=== PATIENT | female | born 1990 | race Caucasian/White ===

== ENCOUNTER 2016-10-27 17:41 | Emergency (ER) | payer MEDICAID ==
[~2016-10-27] VITALS: Ht 157.5 cm; Wt 52.3 kg
[~2016-10-27 17:41] MED LIST: IBU800 M1 PO; LEXAPRO 10MG10 MG PO; ULTRAM 50MG TAB50 MG PO
[2016-10-27 17:46] VITALS: TEMP 98
[2016-10-27 18:27] LABS: BASO # 0.1 (0.0-0.2); BASO % 1.2 % (0.0-2.0); EOS # 0.1 (0.0-0.7); EOS % 1.4 % (0-4.0); GRAN # 1.8 (1.4-6.5); GRAN % 37.8 % (42.2-75.2); HEMATOCRIT 44.7 % (37.0-47.0); HEMOGLOBIN 15.2 g/dl (12.5-16.0); LYMPH # 2.6 (1.2-3.4); MEAN CELL VOLUME 84 fl (80.0-100.0); MEAN CORPUSCULAR HEMOGLOBIN 29 pg (27.0-31.0); MEAN CORPUSCULAR HGB CONC 34 g/dl (33.0-37.0); MONO # 0.3 (0.1-0.6); MONO % 6.4 % (1.7-9.3); PLATELET COUNT 234 K/mm3 (130-400); RED BLOOD COUNT 5.32 M/mm3 (4.10-5.30); REDCELL DISTRIBUTION WIDTH-CV 14.9 % (11.5-14.5); WHITE BLOOD COUNT 4.8 K/mm3 (4.8-10.8)
[2016-10-27 18:41] LABS: ADJUSTED CALCIUM 8.2 mg/dL (8.4-10.2); ALANINE AMINOTRANSFERASE 170 U/L (9-52); ALBUMIN 4.6 gm/dL (3.5-5.0); ALKALINE PHOSPHATASE 88 U/L (50-136); ANION GAP 20 mmol/L (7-16); BILIRUBIN,TOTAL 0.7 mg/dL (0.0-1.0); BLOOD UREA NITROGEN 2 mg/dL (7-17); CALCIUM 8.7 mg/dL (8.4-10.2); CARBON DIOXIDE 21 mmol/L (22-30); CHLORIDE 103 mmol/L (98-107); CREATININE, serum 0.74 mg/dL (0.52-1.25); GLUCOSE 114 mg/dL (74-106); POTASSIUM 3.6 mmol/L (3.4-5.0); SODIUM 143 mmol/L (137-145); TOTAL PROTEIN 7.7 gm/dL (6.4-8.2)
[2016-10-27 18:42] LABS: ACETAMINOPHEN < 10 ug/mL (10-30); SALICYLATE < 1.0 mg/dL
[2016-10-27 19:29] LABS: AMPHETAMINE URINE NEGATIVE; BARBITURATES URINE NEGATIVE; BENZODIAZEPINES URINE NEGATIVE; BUPRENORPHINE URINE NEGATIVE; METHADONE URINE NEGATIVE; OPIATES URINE NEGATIVE; OXYCODONE URINE NEGATIVE; PHENCYCLIDINE URINE NEGATIVE; PROPOXYPHENE URINE NEGATIVE; THC CANNABINOIDS URINE NEGATIVE
[2016-10-27 20:41] LABS: PH 7 (5-8); SQUAMOUS EPITHELIAL None Seen /hpf; URINE APPEARANCE Clear; URINE BACTERIA None Seen /hpf; URINE BILIRUBIN Negative (NEGATIVE); URINE BLOOD Negative (NEGATIVE); URINE COLOR Yellow; URINE GLUCOSE Negative (NEGATIVE); URINE KETONE Negative (NEGATIVE); URINE RBC 0-2 /hpf; URINE UROBILINOGEN Negative (NEGATIVE)
[2016-10-28 03:56] VITALS: BP 115/78; PULSE 120
== END 2016-10-28 03:58 | disposition home or self-care (01) ==
LOC: COL.ER 17:41
PROVIDERS: Emergency Medicine
DX: F10.120 Alcohol abuse with intoxication, uncomplicated (principal); Y90.8 Blood alcohol level of 240 mg/100 ml or more; F32.3 Major depressive disorder, single episode, severe with psychotic features

== ENCOUNTER 2016-12-27 19:49 | Emergency (ER) | payer MEDICAID ==
[~2016-12-27] VITALS: Ht 157.5 cm; Wt 50.0 kg
[2016-12-27 19:51] VITALS: BP 137/98; TEMP 99
[2016-12-27] MEDS ORDERED: ZOLOFT 50MG50 MG PO (19:55)
[2016-12-27] MEDS ORDERED: MOTRIN 800800 MG/TAB PO (20:41)
[2016-12-27 20:50] VITALS: PULSE 110
== END 2016-12-27 20:51 | disposition home or self-care (01) ==
LOC: COL.ER 19:49
DX: S60.221A Contusion of right hand, initial encounter (principal); W22.03XA Walked into furniture, initial encounter; Y92.003 Bedroom of unspecified non-institutional (private) residence as the place of occurrence of the external cause; F32.9 Major depressive disorder, single episode, unspecified

== ENCOUNTER 2017-01-21 17:55 | Observation (INO) | payer MEDICAID ==
[~2017-01-21] VITALS: Ht 157.5 cm; Wt 50.2 kg
[2017-01-21] VITALS (57 sets, daily range): BP systolic 112; BP diastolic 89; PULSE 100; TEMP 97.9; O2SAT 99–100
[~2017-01-21 17:55] MED LIST changes: +MOTRIN 800800 MG/TAB PO; +ZOLOFT 50MG50 MG PO
[2017-01-21 18:38] LABS: BASO % 0.3 % (0.0-2.0); GRAN # 8.9 (1.4-6.5); GRAN % 87.1 % (42.2-75.2); HEMATOCRIT 50.4 % (37.0-47.0); HEMOGLOBIN 15.5 g/dl (12.5-16.0); LYMPH # 0.7 (1.2-3.4); LYMPH % 6.6 % (20.0-51.0); MEAN CELL VOLUME 95 fl (80.0-100.0); MEAN CORPUSCULAR HEMOGLOBIN 29 pg (27.0-31.0); MEAN CORPUSCULAR HGB CONC 31 g/dl (33.0-37.0); MEAN PLATELET VOLUME 11.3 fl (7.4-10.4); MONO # 0.6 (0.1-0.6); MONO % 5.8 % (1.7-9.3); PLATELET COUNT 179 K/mm3 (130-400); RED BLOOD COUNT 5.29 M/mm3 (4.10-5.30); REDCELL DISTRIBUTION WIDTH-CV 16.7 % (11.5-14.5); WHITE BLOOD COUNT 10.3 K/mm3 (4.8-10.8)
[2017-01-21 18:50] LABS: ADJUSTED CALCIUM 8.2 mg/dL (8.4-10.2); ALANINE AMINOTRANSFERASE 187 U/L (9-52); ALBUMIN 5.5 gm/dL (3.5-5.0); ALKALINE PHOSPHATASE 68 U/L (50-136); AMYLASE 70 U/L (30-110); ANION GAP 35 mmol/L (7-16); BILIRUBIN,TOTAL 1.2 mg/dL (0.0-1.0); BLOOD UREA NITROGEN 7 mg/dL (7-17); CALCIUM 9.4 mg/dL (8.4-10.2); CHLORIDE 100 mmol/L (98-107); CREATININE, serum 0.75 mg/dL (0.52-1.25); GLUCOSE 45 mg/dL (74-106); LIPASE 82 U/L (23-300); POTASSIUM 5.4 mmol/L (3.4-5.0); SODIUM 141 mmol/L (137-145); TOTAL PROTEIN 8.3 gm/dL (6.4-8.2)
[2017-01-21 18:51] LABS: CARBON DIOXIDE 6 mmol/L (22-30)
[2017-01-21 18:51] LABS: PH 5 (5-8); SQUAMOUS EPITHELIAL 0-2 /hpf; URINE APPEARANCE Clear; URINE BACTERIA Rare /hpf; URINE BILIRUBIN Negative (NEGATIVE); URINE BLOOD 2+ (NEGATIVE); URINE COLOR Yellow; URINE GLUCOSE Negative (NEGATIVE); URINE KETONE 2+ (NEGATIVE); URINE RBC 0-2 /hpf; URINE UROBILINOGEN Negative (NEGATIVE); URINE WBC 0-2 /hpf
[2017-01-21 19:34] LABS: ACETAMINOPHEN < 10 ug/mL (10-30); SALICYLATE < 1.0 mg/dL
[2017-01-21 21:46] LABS: CALCIUM 7.6 mg/dL (8.4-10.2); CREATININE, serum 0.65 mg/dL (0.52-1.25); POTASSIUM 4.8 mmol/L (3.4-5.0)
[2017-01-21 22:12] LABS: AMPHETAMINE URINE NEGATIVE; BARBITURATES URINE NEGATIVE; BENZODIAZEPINES URINE NEGATIVE; BUPRENORPHINE URINE NEGATIVE; METHADONE URINE NEGATIVE; OPIATES URINE NEGATIVE; OXYCODONE URINE NEGATIVE; PHENCYCLIDINE URINE NEGATIVE; PROPOXYPHENE URINE NEGATIVE; THC CANNABINOIDS URINE NEGATIVE
[2017-01-22] VITALS (901 sets, daily range): BP systolic 107–132; BP diastolic 74–98; PULSE 80–93; TEMP 97.4–98.6; O2SAT 42–100
[2017-01-22 00:01] LABS: PROTHROMBIN TIME 11.3 SECONDS (9.7-12.8)
[2017-01-22 02:45] LABS: CREATININE, serum 0.59 mg/dL (0.52-1.25); MAGNESIUM 2.6 mg/dL (1.6-2.3); PHOSPHOROUS 1.8 mg/dL (2.5-4.5); POTASSIUM 4.3 mmol/L (3.4-5.0)
[2017-01-22 06:05] LABS: MEAN CORPUSCULAR HGB CONC 34 g/dl (33.0-37.0); MEAN PLATELET VOLUME 10.5 fl (7.4-10.4); PLATELET COUNT 113 K/mm3 (130-400); REDCELL DISTRIBUTION WIDTH-CV 15.9 % (11.5-14.5); WHITE BLOOD COUNT 5.3 K/mm3 (4.8-10.8)
[2017-01-22 06:07] LABS: MEAN CORPUSCULAR HEMOGLOBIN 30 pg (27.0-31.0)
[2017-01-22 06:08] LABS: HEMATOCRIT 35.5 % (37.0-47.0); MEAN CELL VOLUME 89 fl (80.0-100.0)
[2017-01-22 06:13] LABS: INR 1.2 (0.8-3.0); PROTHROMBIN TIME 13.2 SECONDS (9.7-12.8)
[2017-01-22 06:18] LABS: ADJUSTED CALCIUM 8.2 mg/dL (8.4-10.2); ALBUMIN 3.2 gm/dL (3.5-5.0); BILIRUBIN,TOTAL 1.3 mg/dL (0.0-1.0); CALCIUM 7.6 mg/dL (8.4-10.2); CREATININE, serum 0.58 mg/dL (0.52-1.25); POTASSIUM 4.1 mmol/L (3.4-5.0); TOTAL PROTEIN 5.4 gm/dL (6.4-8.2)
[2017-01-23 04:50] VITALS: BP 131/90; PULSE 91; TEMP 98.9
[2017-01-23 07:42] VITALS: BP 127/92; PULSE 62; TEMP 98.4
[2017-01-23 07:57] LABS: BASO % 0.3 % (0.0-2.0); EOS % 0.3 % (0-4.0); GRAN # 1.9 (1.4-6.5); GRAN % 51.4 % (42.2-75.2); LYMPH # 1.6 (1.2-3.4); LYMPH % 42.2 % (20.0-51.0); MEAN CELL VOLUME 91 fl (80.0-100.0); MEAN CORPUSCULAR HGB CONC 33 g/dl (33.0-37.0); MEAN PLATELET VOLUME 11.3 fl (7.4-10.4); MONO # 0.2 (0.1-0.6); MONO % 5.8 % (1.7-9.3); PLATELET COUNT 79 K/mm3 (130-400); RED BLOOD COUNT 3.67 M/mm3 (4.10-5.30); WHITE BLOOD COUNT 3.8 K/mm3 (4.8-10.8)
[2017-01-23 07:58] LABS: HEMATOCRIT 33.5 % (37.0-47.0); HEMOGLOBIN 10.9 g/dl (12.5-16.0); MEAN CORPUSCULAR HEMOGLOBIN 30 pg (27.0-31.0)
[2017-01-23 08:09] LABS: ADJUSTED CALCIUM 8.4 mg/dL (8.4-10.2); ALBUMIN 3.2 gm/dL (3.5-5.0); BILIRUBIN,TOTAL 1.2 mg/dL (0.0-1.0); CALCIUM 7.8 mg/dL (8.4-10.2); CREATININE, serum 0.58 mg/dL (0.52-1.25); TOTAL PROTEIN 5.3 gm/dL (6.4-8.2)
[2017-01-23 08:29] LABS: POTASSIUM 2.9 mmol/L (3.4-5.0)
[2017-01-23 11:29] VITALS: BP 130/88; PULSE 85
== END 2017-01-23 13:07 | disposition home or self-care (01) ==
LOC: COL.ER 17:55 → ICU 20:28 → MEDICAL 01-22 22:28
PROVIDERS: Emergency Medicine; Family Medicine; Internal Medicine
DX: F10.10 Alcohol abuse, uncomplicated (principal); Y90.5 Blood alcohol level of 100-119 mg/100 ml; F17.210 Nicotine dependence, cigarettes, uncomplicated; E87.2 Acidosis; E86.0 Dehydration; D69.6 Thrombocytopenia, unspecified
CPT/HCPCS: 99232-AI; C9113; G0378; J1650; J2270; J2765; J3010; J3411; J3475; J7030; J7070

== ENCOUNTER 2017-03-27 06:58 | Emergency (ER) | payer MEDICAID ==
[~2017-03-27] VITALS: Ht 157.5 cm; Wt 43.2 kg
[2017-03-27 07:00] VITALS: TEMP 98.8
[2017-03-27] MEDS ORDERED: ZOLOFT 50MG50 MG PO (07:06)
[2017-03-27] MEDS ORDERED: NEXPLANON68 MG ID (07:06)
[2017-03-27 07:38] LABS: BASO % 0.9 % (0.0-2.0); EOS % 0.3 % (0-4.0); GRAN # 2.2 (1.4-6.5); GRAN % 63.7 % (42.2-75.2); HEMATOCRIT 44.1 % (37.0-47.0); HEMOGLOBIN 15.1 g/dl (12.5-16.0); LYMPH # 0.9 (1.2-3.4); LYMPH % 26.7 % (20.0-51.0); MEAN CELL VOLUME 90 fl (80.0-100.0); MEAN CORPUSCULAR HEMOGLOBIN 31 pg (27.0-31.0); MEAN CORPUSCULAR HGB CONC 34 g/dl (33.0-37.0); MEAN PLATELET VOLUME 10.9 fl (7.4-10.4); MONO # 0.3 (0.1-0.6); MONO % 8.1 % (1.7-9.3); PLATELET COUNT 107 K/mm3 (130-400); RED BLOOD COUNT 4.89 M/mm3 (4.10-5.30); REDCELL DISTRIBUTION WIDTH-CV 14.7 % (11.5-14.5); WHITE BLOOD COUNT 3.5 K/mm3 (4.8-10.8)
[2017-03-27 07:49] LABS: ADJUSTED CALCIUM 8.8 mg/dL (8.4-10.2); ALBUMIN 4.2 gm/dL (3.5-5.0); BILIRUBIN,TOTAL 1.7 mg/dL (0.0-1.0); CREATININE, serum 0.66 mg/dL (0.52-1.25); MAGNESIUM 1.4 mg/dL (1.6-2.3); PHOSPHOROUS 5.1 mg/dL (2.5-4.5); POTASSIUM 3.1 mmol/L (3.4-5.0)
[2017-03-27] MEDS ORDERED: ZOFRAN ODT4 MG PO (09:55)
[2017-03-27 10:52] VITALS: BP 124/86; PULSE 98
[2017-03-27] MEDS ORDERED: PROTONIX 40MG T40 MG PO (11:06)
== END 2017-03-27 11:09 | disposition home or self-care (01) ==
LOC: COL.ER 06:58
PROVIDERS: Emergency Medicine
DX: K29.70 Gastritis, unspecified, without bleeding (principal); F10.10 Alcohol abuse, uncomplicated
CPT/HCPCS: C9113; J2060; J2405; J2550; J3480; J7030

== ENCOUNTER 2017-07-17 09:25 | Emergency (ER) | payer MEDICAID ==
[~2017-07-17] VITALS: Ht 157.5 cm; Wt 40.0 kg
[~2017-07-17 09:25] MED LIST changes: +NEXPLANON68 MG ID; +PROTONIX 40MG T40 MG PO; +ZOFRAN ODT4 MG PO
[2017-07-17 09:30] VITALS: TEMP 98.9
[2017-07-17 10:08] LABS: COLLECTION METHOD CLEAN CATCH
[2017-07-17 10:18] LABS: BUDDING YEAST Present /hpf; MUCOUS Present /lpf; PH 9 (5-8); URINE APPEARANCE Cloudy; URINE BACTERIA None Seen /hpf; URINE BILIRUBIN Negative (NEGATIVE); URINE BLOOD Negative (NEGATIVE); URINE COLOR Yellow; URINE GLUCOSE Negative (NEGATIVE); URINE KETONE Trace (NEGATIVE); URINE LEUKOCYTE ESTERASE 2+ (NEGATIVE); URINE PROTEIN(semi-quant) 1+ (NEGATIVE); URINE RBC None Seen /hpf; URINE UROBILINOGEN Negative (NEGATIVE)
[2017-07-17 10:22] LABS: AMPHETAMINE URINE NEGATIVE; BARBITURATES URINE NEGATIVE; BENZODIAZEPINES URINE NEGATIVE; BUPRENORPHINE URINE NEGATIVE; METHADONE URINE NEGATIVE; OPIATES URINE NEGATIVE; OXYCODONE URINE NEGATIVE; PHENCYCLIDINE URINE NEGATIVE; PROPOXYPHENE URINE NEGATIVE; THC CANNABINOIDS URINE NEGATIVE; TRICYCLIC ANTIDEPRESS URINE NEGATIVE
[2017-07-17 10:31] LABS: BASO # 0.1 (0.0-0.2); BASO % 0.7 % (0.0-2.0); EOS % 0.2 % (0-4.0); GRAN # 6.5 (1.4-6.5); GRAN % 81.3 % (42.2-75.2); HEMATOCRIT 36.5 % (37.0-47.0); HEMOGLOBIN 12.2 g/dl (12.5-16.0); LYMPH # 1.1 (1.2-3.4); LYMPH % 13.7 % (20.0-51.0); MEAN CELL VOLUME 96 fl (80.0-100.0); MEAN CORPUSCULAR HEMOGLOBIN 32 pg (27.0-31.0); MEAN CORPUSCULAR HGB CONC 33 g/dl (33.0-37.0); MEAN PLATELET VOLUME 10.4 fl (7.4-10.4); MONO # 0.3 (0.1-0.6); PLATELET COUNT 305 K/mm3 (130-400)
[2017-07-17 10:42] LABS: ADJUSTED CALCIUM 9.4 mg/dL (8.4-10.2); ALANINE AMINOTRANSFERASE 71 U/L (9-52); ALBUMIN 4.6 gm/dL (3.5-5.0); ALKALINE PHOSPHATASE 188 U/L (50-136); ANION GAP 15 mmol/L (7-16); BLOOD UREA NITROGEN 5 mg/dL (7-17); CALCIUM 9.9 mg/dL (8.4-10.2); CARBON DIOXIDE 24 mmol/L (22-30); CHLORIDE 102 mmol/L (98-107); CREATININE, serum 0.35 mg/dL (0.52-1.25); GLUCOSE 122 mg/dL (74-106); MAGNESIUM 1.4 mg/dL (1.6-2.3); PHOSPHOROUS 4.6 mg/dL (2.5-4.5); POTASSIUM 3.7 mmol/L (3.4-5.0); SODIUM 140 mmol/L (137-145); TOTAL PROTEIN 7.9 gm/dL (6.4-8.2)
[2017-07-17 11:00] LABS: ACETAMINOPHEN < 10 ug/mL (10-30); ALCOHOL(ethanol),MEDICAL < 10 mg/dL; SALICYLATE < 1.0 mg/dL
[2017-07-17 18:40] VITALS: BP 103/77; PULSE 85
== END 2017-07-17 18:45 ==
LOC: COL.ER 09:25
PROVIDERS: Physician Assistant
DX: F10.230 Alcohol dependence with withdrawal, uncomplicated (principal); R45.851 Suicidal ideations; F32.9 Major depressive disorder, single episode, unspecified; F41.9 Anxiety disorder, unspecified; F17.210 Nicotine dependence, cigarettes, uncomplicated; Z87.19 Personal history of other diseases of the digestive system
CPT/HCPCS: J2060; J2765; J7030

== ENCOUNTER 2018-05-22 04:56 | Inpatient (IN) | payer MEDICAID ==
[~2018-05-22] VITALS: Ht 157.5 cm; Wt 43.7 kg
[2018-05-22 05:42] LABS: BASO % 0.7 % (0.0-2.0); EOS # 0.1 (0.0-0.7); EOS % 1.5 % (0-4.0); GRAN # 2.9 (1.4-6.5); GRAN % 49.5 % (42.2-75.2); HEMATOCRIT 39.2 % (37.0-47.0); HEMOGLOBIN 13.1 g/dl (12.5-16.0); LYMPH # 2.2 (1.2-3.4); LYMPH % 37.7 % (20.0-51.0); MEAN CELL VOLUME 84 fl (80.0-100.0); MEAN CORPUSCULAR HEMOGLOBIN 28 pg (27.0-31.0); MEAN CORPUSCULAR HGB CONC 33 g/dl (33.0-37.0); MEAN PLATELET VOLUME 9.4 fl (7.4-10.4); MONO # 0.6 (0.1-0.6); MONO % 10.3 % (1.7-9.3); PLATELET COUNT 263 K/mm3 (130-400); RED BLOOD COUNT 4.68 M/mm3 (4.10-5.30); REDCELL DISTRIBUTION WIDTH-CV 17.2 % (11.5-14.5)
[2018-05-22 06:02] LABS: ALANINE AMINOTRANSFERASE 57 U/L (9-52); ALBUMIN 4.1 gm/dL (3.5-5.0); ALCOHOL(ethanol),MEDICAL 44 mg/dL; ALKALINE PHOSPHATASE 81 U/L (50-136); ANION GAP 13 mmol/L (7-16); AST,SGOT 57 U/L (15-37); BILIRUBIN,TOTAL 0.6 mg/dL (0.0-1.0); BLOOD UREA NITROGEN 9 mg/dL (7-17); C-REACTIVE PROTEIN < 0.5 mg/dL (0.0-0.9); CALCIUM 9.1 mg/dL (8.4-10.2); CARBON DIOXIDE 25 mmol/L (22-30); CHLORIDE 100 mmol/L (98-107); CREATININE, serum 0.49 mg/dL (0.52-1.25); GLUCOSE 90 mg/dL (74-106); LIPASE 1455 U/L (23-300); POTASSIUM 3.7 mmol/L (3.4-5.0); SODIUM 138 mmol/L (137-145); TOTAL PROTEIN 6.9 gm/dL (6.4-8.2)
[2018-05-22] MEDS ORDERED: ZOLOFT 100MG100 MG PO (07:27)
[2018-05-22] MEDS ORDERED: SEROQUEL50 MG PO (07:27)
[2018-05-22] MEDS ORDERED: BUSPAR10 MG PO (07:28)
[2018-05-22 08:10] VITALS: BP 108/66; PULSE 66; TEMP 98.9
[2018-05-22 12:20] VITALS: BP 117/80; PULSE 73; TEMP 98.4
[2018-05-22 16:26] VITALS: BP 112/81; PULSE 89; TEMP 98.5
[2018-05-22 18:50] LABS: COLLECTION METHOD CLEAN CATCH
[2018-05-22 19:00] LABS: PH 5 (5-8); URINE APPEARANCE Hazy; URINE BACTERIA Rare /hpf; URINE BILIRUBIN Negative (NEGATIVE); URINE BLOOD Negative (NEGATIVE); URINE COLOR Yellow; URINE GLUCOSE Negative (NEGATIVE); URINE KETONE Trace (NEGATIVE); URINE LEUKOCYTE ESTERASE 3+ (NEGATIVE); URINE NITRATE Negative (NEGATIVE); URINE PROTEIN(semi-quant) Negative (NEGATIVE); URINE UROBILINOGEN Negative (NEGATIVE)
[2018-05-22 20:00] VITALS: BP 116/50; PULSE 81
[2018-05-22 20:11] VITALS: BP 116/50; PULSE 81; TEMP 98.5
[2018-05-22 22:52] VITALS: BP 96/59; PULSE 84; TEMP 98.2
[2018-05-23] VITALS (8 sets, daily range): BP systolic 89–117; BP diastolic 49–72; PULSE 80–93; TEMP 97.4–99.2
[2018-05-23 06:41] LABS: BILIRUBIN,TOTAL 0.9 mg/dL (0.0-1.0); CALCIUM 8.4 mg/dL (8.4-10.2); CREATININE, serum 0.49 mg/dL (0.52-1.25); POTASSIUM 3.9 mmol/L (3.4-5.0); TOTAL PROTEIN 5.5 gm/dL (6.4-8.2)
[2018-05-23 07:21] LABS: BASO % 0.6 % (0.0-2.0); EOS # 0.1 (0.0-0.7); EOS % 1.2 % (0-4.0); GRAN # 3.3 (1.4-6.5); GRAN % 63.9 % (42.2-75.2); HEMOGLOBIN 11.3 g/dl (12.5-16.0); LYMPH # 1.2 (1.2-3.4); LYMPH % 23.5 % (20.0-51.0); MEAN CELL VOLUME 87 fl (80.0-100.0); MEAN CORPUSCULAR HEMOGLOBIN 28 pg (27.0-31.0); MEAN CORPUSCULAR HGB CONC 32 g/dl (33.0-37.0); MEAN PLATELET VOLUME 10.7 fl (7.4-10.4); MONO # 0.5 (0.1-0.6); MONO % 10.4 % (1.7-9.3); PLATELET COUNT 180 K/mm3 (130-400); RED BLOOD COUNT 4.09 M/mm3 (4.10-5.30); REDCELL DISTRIBUTION WIDTH-CV 16.4 % (11.5-14.5)
[2018-05-23 07:23] LABS: HEMATOCRIT 35.7 % (37.0-47.0)
[2018-05-24 02:11] VITALS: BP 106/67; PULSE 77
[2018-05-24 05:45] VITALS: BP 101/63; PULSE 76; TEMP 98.6
[2018-05-24 07:30] LABS: BASO % 0.6 % (0.0-2.0); EOS # 0.1 (0.0-0.7); EOS % 3.1 % (0-4.0); GRAN # 1.5 (1.4-6.5); GRAN % 43.6 % (42.2-75.2); LYMPH # 1.4 (1.2-3.4); MEAN CELL VOLUME 85 fl (80.0-100.0); MEAN CORPUSCULAR HGB CONC 33 g/dl (33.0-37.0); MEAN PLATELET VOLUME 10.2 fl (7.4-10.4); MONO # 0.4 (0.1-0.6); MONO % 11.4 % (1.7-9.3); PLATELET COUNT 165 K/mm3 (130-400); RED BLOOD COUNT 3.56 M/mm3 (4.10-5.30); REDCELL DISTRIBUTION WIDTH-CV 16.6 % (11.5-14.5)
[2018-05-24 07:34] LABS: HEMATOCRIT 30.4 % (37.0-47.0); MEAN CORPUSCULAR HEMOGLOBIN 28 pg (27.0-31.0)
[2018-05-24 07:39] LABS: ALBUMIN 2.7 gm/dL (3.5-5.0); BILIRUBIN,TOTAL 0.3 mg/dL (0.0-1.0); CREATININE, serum 0.46 mg/dL (0.52-1.25); POTASSIUM 3.2 mmol/L (3.4-5.0); TOTAL PROTEIN 5.2 gm/dL (6.4-8.2)
[2018-05-24 08:00] VITALS: BP 97/58; PULSE 72; TEMP 98.4
[2018-05-24 10:10] LABS: HEMOGLOBIN 9.9 g/dl (12.5-16.0)
[2018-05-24 12:15] VITALS: BP 108/75; PULSE 77; TEMP 98.6
[2018-05-24 16:20] VITALS: BP 113/77; PULSE 88; TEMP 99.1
[2018-05-24 21:36] VITALS: BP 96/59; PULSE 87
[2018-05-25 01:58] VITALS: BP 92/53; PULSE 70
[2018-05-25 04:50] VITALS: BP 100/57; PULSE 75
[2018-05-25 06:18] LABS: BASO % 0.8 % (0.0-2.0); EOS # 0.1 (0.0-0.7); EOS % 3.8 % (0-4.0); GRAN # 1.5 (1.4-6.5); GRAN % 40.7 % (42.2-75.2); HEMOGLOBIN 10.2 g/dl (12.5-16.0); LYMPH # 1.7 (1.2-3.4); LYMPH % 44.5 % (20.0-51.0); MEAN CELL VOLUME 86 fl (80.0-100.0); MEAN CORPUSCULAR HEMOGLOBIN 28 pg (27.0-31.0); MEAN CORPUSCULAR HGB CONC 32 g/dl (33.0-37.0); MEAN PLATELET VOLUME 10.2 fl (7.4-10.4); MONO # 0.4 (0.1-0.6); MONO % 9.9 % (1.7-9.3); PLATELET COUNT 181 K/mm3 (130-400); RED BLOOD COUNT 3.68 M/mm3 (4.10-5.30); REDCELL DISTRIBUTION WIDTH-CV 16.7 % (11.5-14.5)
[2018-05-25 06:28] LABS: HEMATOCRIT 31.6 % (37.0-47.0)
[2018-05-25 06:35] LABS: ALBUMIN 2.9 gm/dL (3.5-5.0); BILIRUBIN,TOTAL 0.2 mg/dL (0.0-1.0); CALCIUM 8.1 mg/dL (8.4-10.2); CREATININE, serum 0.47 mg/dL (0.52-1.25); POTASSIUM 3.2 mmol/L (3.4-5.0); TOTAL PROTEIN 5.3 gm/dL (6.4-8.2)
[2018-05-25 07:49] VITALS: BP 102/66; PULSE 69; TEMP 98.7
[2018-05-25] MEDS ORDERED: MAG-OX 400400 MG/TAB PO (12:10)
[2018-05-25] MEDS ORDERED: THIAMINE 1100 MG/TAB PO (12:11)
[2018-05-25] MEDS ORDERED: PROTONIX 40MG T40 MG PO (12:11)
[2018-05-25] MEDS ORDERED: FOLIC ACID 11 MG/TA1 PO (12:11)
[2018-05-25] MEDS ORDERED: DUO-KAPS1 CAP PO (12:11)
[2018-05-25] MEDS ORDERED: NORCO 325 MG-51 TAB PO ×2 (12:15→12:45)
[2018-05-25] MEDS ORDERED: ATARAX50 MG PO (12:30)
[2018-05-25] MEDS ORDERED: PROZAC40 MG PO (12:32)
[2018-05-25] MEDS ORDERED: ZOLOFT 100MG100 MG PO (12:35)
[2018-05-25 13:11] VITALS: BP 105/75; PULSE 82; TEMP 98.7
== END 2018-05-25 15:16 | disposition home or self-care (01) | DRG 440 ==
LOC: COL.ER 04:56 → MEDICAL 06:58
PROVIDERS: Emergency Medicine; Physician Assistant
DX: K85.20 Alcohol induced acute pancreatitis without necrosis or infection (principal); F32.9 Major depressive disorder, single episode, unspecified; F10.10 Alcohol abuse, uncomplicated; E16.2 Hypoglycemia, unspecified; I95.9 Hypotension, unspecified; E87.6 Hypokalemia; F41.9 Anxiety disorder, unspecified; K29.20 Alcoholic gastritis without bleeding
CPT/HCPCS: 99222-AI; 99231-AI; 99232-AI; 99239; C9113; J1200; J1650; J2060; J2270; J2405; J3475; J7030; J7042

== ENCOUNTER 2018-05-26 13:36 | Emergency (ER) | payer MEDICAID ==
[~2018-05-26] VITALS: Ht 157.5 cm; Wt 43.2 kg
[~2018-05-26 13:36] MED LIST changes: +ATARAX50 MG PO; +BUSPAR10 MG PO; +DUO-KAPS1 CAP PO; +FOLIC ACID 11 MG/TA1 PO; +MAG-OX 400400 MG/TAB PO; +NORCO 325 MG-51 TAB PO; +PROZAC40 MG PO; +SEROQUEL50 MG PO; +THIAMINE 1100 MG/TAB PO; +ZOLOFT 100MG100 MG PO
[2018-05-26 13:37] VITALS: TEMP 98.6
[2018-05-26 14:45] VITALS: BP 96/64; PULSE 97
[2018-06-09] VITALS (65 sets, daily range): O2SAT 97–100
[2018-06-10] VITALS (453 sets, daily range): O2SAT 92–100
[2018-06-11] VITALS (186 sets, daily range): O2SAT 90–100
== END 2018-05-26 14:58 | disposition home or self-care (01) ==
LOC: COL.ER 13:36
DX: H92.11 Otorrhea, right ear (principal); F32.9 Major depressive disorder, single episode, unspecified; F41.9 Anxiety disorder, unspecified

== ENCOUNTER 2018-06-09 11:57 | Inpatient (IN) | payer MEDICAID ==
[~2018-06-09] VITALS: Ht 154.9 cm; Wt 45.0 kg
[2018-06-09 12:55] LABS: COLLECTION METHOD CLEAN CATCH
[2018-06-09 12:59] LABS: BASO % 0.5 % (0.0-2.0); GRAN # 6.3 (1.4-6.5); GRAN % 81.6 % (42.2-75.2); HEMATOCRIT 45.7 % (37.0-47.0); HEMOGLOBIN 14.8 g/dl (12.5-16.0); LYMPH # 1.2 (1.2-3.4); MEAN CELL VOLUME 85 fl (80.0-100.0); MEAN CORPUSCULAR HEMOGLOBIN 27 pg (27.0-31.0); MEAN CORPUSCULAR HGB CONC 32 g/dl (33.0-37.0); MEAN PLATELET VOLUME 9.3 fl (7.4-10.4); MONO # 0.2 (0.1-0.6); MONO % 2.5 % (1.7-9.3); PLATELET COUNT 362 K/mm3 (130-400); REDCELL DISTRIBUTION WIDTH-CV 16.7 % (11.5-14.5)
[2018-06-09 13:07] LABS: MUCOUS Present /lpf; PH 5 (5-8); SQUAMOUS EPITHELIAL 0-2 /hpf; URINE APPEARANCE Hazy; URINE BACTERIA None Seen /hpf; URINE BILIRUBIN Negative (NEGATIVE); URINE BLOOD Negative (NEGATIVE); URINE COLOR Yellow; URINE GLUCOSE Negative (NEGATIVE); URINE KETONE 2+ (NEGATIVE); URINE LEUKOCYTE ESTERASE Trace (NEGATIVE); URINE NITRATE Negative (NEGATIVE); URINE PROTEIN(semi-quant) 2+ (NEGATIVE); URINE UROBILINOGEN Negative (NEGATIVE)
[2018-06-09 13:11] LABS: MAGNESIUM 1.6 mg/dL (1.6-2.3); PHOSPHOROUS 4.2 mg/dL (2.5-4.5)
[2018-06-09 13:12] LABS: ALANINE AMINOTRANSFERASE 45 U/L (9-52); ALBUMIN 4.7 gm/dL (3.5-5.0); ALCOHOL(ethanol),MEDICAL 222 mg/dL; ALKALINE PHOSPHATASE 115 U/L (50-136); ANION GAP 22 mmol/L (7-16); AST,SGOT 74 U/L (15-37); BILIRUBIN,TOTAL 0.4 mg/dL (0.0-1.0); BLOOD UREA NITROGEN 13 mg/dL (7-17); CALCIUM 8.6 mg/dL (8.4-10.2); CARBON DIOXIDE 15 mmol/L (22-30); CHLORIDE 102 mmol/L (98-107); CREATININE, serum 0.62 mg/dL (0.52-1.25); GLUCOSE 59 mg/dL (74-106); LIPASE 161 U/L (23-300); POTASSIUM 4.2 mmol/L (3.4-5.0); SODIUM 139 mmol/L (137-145); TOTAL PROTEIN 7.6 gm/dL (6.4-8.2)
[2018-06-09 13:15] LABS: TRICYCLIC ANTIDEPRESS URINE NEGATIVE
[2018-06-09 13:16] LABS: C-REACTIVE PROTEIN < 0.5 mg/dL (0.0-0.9)
[2018-06-09 13:39] LABS: ACETAMINOPHEN < 10 ug/mL (10-30); SALICYLATE < 1.0 mg/dL
[2018-06-09 16:44] LABS: ALANINE AMINOTRANSFERASE 38 U/L (9-52); ALBUMIN 3.6 gm/dL (3.5-5.0); ALKALINE PHOSPHATASE 82 U/L (50-136); ANION GAP 14 mmol/L (7-16); AST,SGOT 59 U/L (15-37); BILIRUBIN,TOTAL 0.3 mg/dL (0.0-1.0); BLOOD UREA NITROGEN 9 mg/dL (7-17); CALCIUM 7.3 mg/dL (8.4-10.2); CARBON DIOXIDE 19 mmol/L (22-30); CHLORIDE 97 mmol/L (98-107); CREATININE, serum 0.53 mg/dL (0.52-1.25); GLUCOSE 343 mg/dL (74-106); SODIUM 130 mmol/L (137-145)
[2018-06-09 16:53] LABS: ACETONE,SERUM SMALL
[2018-06-09 21:58] VITALS: BP 109/67; PULSE 135; TEMP 99.5
[2018-06-10] VITALS: BP 104/67; PULSE 104; TEMP 98.6
[2018-06-10 04:00] VITALS: BP 92/62; PULSE 86; TEMP 98.7
[2018-06-10 06:25] LABS: BASO % 0.4 % (0.0-2.0); EOS # 0.1 (0.0-0.7); GRAN # 2.3 (1.4-6.5); GRAN % 48.1 % (42.2-75.2); LYMPH # 2.2 (1.2-3.4); LYMPH % 45.7 % (20.0-51.0); MEAN CELL VOLUME 84 fl (80.0-100.0); MEAN CORPUSCULAR HGB CONC 33 g/dl (33.0-37.0); MEAN PLATELET VOLUME 9.3 fl (7.4-10.4); MONO # 0.2 (0.1-0.6); MONO % 4.6 % (1.7-9.3); RED BLOOD COUNT 3.64 M/mm3 (4.10-5.30); REDCELL DISTRIBUTION WIDTH-CV 16.7 % (11.5-14.5)
[2018-06-10 06:38] LABS: HEMATOCRIT 30.7 % (37.0-47.0); HEMOGLOBIN 10.2 g/dl (12.5-16.0); MEAN CORPUSCULAR HEMOGLOBIN 28 pg (27.0-31.0); PLATELET COUNT 181 K/mm3 (130-400)
[2018-06-10 06:48] LABS: CALCIUM 7.3 mg/dL (8.4-10.2); CREATININE, serum 0.52 mg/dL (0.52-1.25); POTASSIUM 3.7 mmol/L (3.4-5.0)
[2018-06-10 08:08] VITALS: BP 105/78; PULSE 82; TEMP 99.5
[2018-06-10 12:00] VITALS: BP 103/71; PULSE 91; TEMP 99.3
[2018-06-10 16:00] VITALS: BP 129/88; PULSE 96; TEMP 992
[2018-06-10 20:00] VITALS: BP 102/67; PULSE 102; TEMP 99.3
[2018-06-11] VITALS: BP 100/68; PULSE 74; TEMP 97.8
[2018-06-11 04:00] VITALS: BP 94/68; PULSE 83; TEMP 98.4
[2018-06-11 06:47] LABS: BASO % 0.6 % (0.0-2.0); EOS # 0.1 (0.0-0.7); GRAN # 1.2 (1.4-6.5); GRAN % 38.1 % (42.2-75.2); HEMOGLOBIN 11.2 g/dl (12.5-16.0); LYMPH # 1.7 (1.2-3.4); LYMPH % 51.1 % (20.0-51.0); MEAN CELL VOLUME 85 fl (80.0-100.0); MEAN CORPUSCULAR HEMOGLOBIN 28 pg (27.0-31.0); MEAN CORPUSCULAR HGB CONC 34 g/dl (33.0-37.0); MEAN PLATELET VOLUME 9.9 fl (7.4-10.4); MONO # 0.2 (0.1-0.6); MONO % 5.9 % (1.7-9.3); PLATELET COUNT 163 K/mm3 (130-400); RED BLOOD COUNT 3.95 M/mm3 (4.10-5.30)
[2018-06-11 06:56] LABS: HEMATOCRIT 33.4 % (37.0-47.0)
[2018-06-11 07:05] LABS: CALCIUM 8.5 mg/dL (8.4-10.2); CREATININE, serum 0.46 mg/dL (0.52-1.25); POTASSIUM 3.3 mmol/L (3.4-5.0)
[2018-06-11 08:39] VITALS: BP 86/62; PULSE 86; TEMP 99
[2018-06-11 12:25] VITALS: BP 106/67; PULSE 80; TEMP 97.8
[2018-06-11] MEDS ORDERED: PROZAC40 MG PO (13:04)
[2018-06-11] MEDS ORDERED: BUSPAR10 MG PO (13:04)
[2018-06-11] MEDS ORDERED: ATARAX50 MG PO (13:05)
[2018-06-11] MEDS ORDERED: ATIVAN 0.50.5 MG/TAB PO (13:07)
[2018-06-11] MEDS ORDERED: LIBRIUM 25M25 MG/CAP PO (13:34)
== END 2018-06-11 14:57 | disposition home or self-care (01) | DRG 897 ==
LOC: COL.ER 11:57 → SURG 16:34 → ICU 19:14
PROVIDERS: Hospitalist; Physician Assistant
DX: F10.239 Alcohol dependence with withdrawal, unspecified (principal); E87.2 Acidosis; E44.0 Moderate protein-calorie malnutrition; Z68.1 Body mass index [BMI] 19.9 or less, adult; F10.229 Alcohol dependence with intoxication, unspecified; Y90.7 Blood alcohol level of 200-239 mg/100 ml; F41.8 Other specified anxiety disorders; F17.210 Nicotine dependence, cigarettes, uncomplicated; F41.0 Panic disorder [episodic paroxysmal anxiety]; R73.9 Hyperglycemia, unspecified; K29.20 Alcoholic gastritis without bleeding
CPT/HCPCS: 99223-AI; 99233-AI; 99239; C9113; J1650; J2060; J2405; J3411; J3475; J7030; J7070

== ENCOUNTER 2018-06-17 20:24 | Emergency (ER) | payer MEDICAID ==
[~2018-06-17] VITALS: Ht 154.9 cm; Wt 42.7 kg
[~2018-06-17 20:24] MED LIST changes: +ATIVAN 0.50.5 MG/TAB PO; +LIBRIUM 25M25 MG/CAP PO
[2018-06-17 20:38] VITALS: TEMP 97.1
[2018-06-17 21:56] LABS: BASO % 0.8 % (0.0-2.0); EOS # 0.2 (0.0-0.7); EOS % 3.9 % (0-4.0); GRAN # 1.4 (1.4-6.5); GRAN % 27.3 % (42.2-75.2); HEMATOCRIT 38.1 % (37.0-47.0); HEMOGLOBIN 12.6 g/dl (12.5-16.0); LYMPH % 59.5 % (20.0-51.0); MEAN CELL VOLUME 84 fl (80.0-100.0); MEAN CORPUSCULAR HEMOGLOBIN 28 pg (27.0-31.0); MEAN CORPUSCULAR HGB CONC 33 g/dl (33.0-37.0); MEAN PLATELET VOLUME 9.7 fl (7.4-10.4); MONO # 0.4 (0.1-0.6); MONO % 8.3 % (1.7-9.3); PLATELET COUNT 202 K/mm3 (130-400); RED BLOOD COUNT 4.53 M/mm3 (4.10-5.30); REDCELL DISTRIBUTION WIDTH-CV 17.2 % (11.5-14.5)
[2018-06-17 22:07] LABS: ALBUMIN 4.1 gm/dL (3.5-5.0); BILIRUBIN,TOTAL 0.1 mg/dL (0.0-1.0); CALCIUM 8.4 mg/dL (8.4-10.2); CREATININE, serum 0.61 mg/dL (0.52-1.25); POTASSIUM 3.9 mmol/L (3.4-5.0); TOTAL PROTEIN 6.8 gm/dL (6.4-8.2)
[2018-06-17 23:49] LABS: ACETAMINOPHEN < 10 ug/mL (10-30); SALICYLATE < 1.0 mg/dL
[2018-06-18 05:35] LABS: COLLECTION METHOD CLEAN CATCH
[2018-06-18 05:41] LABS: MUCOUS Present /lpf; PH 5 (5-8); SQUAMOUS EPITHELIAL 0-2 /hpf; URINE APPEARANCE Clear; URINE BACTERIA None Seen /hpf; URINE BILIRUBIN Negative (NEGATIVE); URINE BLOOD Negative (NEGATIVE); URINE COLOR Yellow; URINE GLUCOSE Negative (NEGATIVE); URINE KETONE Negative (NEGATIVE); URINE LEUKOCYTE ESTERASE Trace (NEGATIVE); URINE NITRATE Negative (NEGATIVE); URINE PROTEIN(semi-quant) Negative (NEGATIVE); URINE RBC 0-2 /hpf; URINE UROBILINOGEN Negative (NEGATIVE)
[2018-06-18 05:53] LABS: TRICYCLIC ANTIDEPRESS URINE NEGATIVE
[2018-06-18 11:24] VITALS: BP 97/56; PULSE 100
== END 2018-06-18 12:44 | disposition home or self-care (01) ==
LOC: COL.ER 20:24
PROVIDERS: Emergency Medicine; Family Medicine
DX: F10.129 Alcohol abuse with intoxication, unspecified (principal); F32.9 Major depressive disorder, single episode, unspecified; F41.9 Anxiety disorder, unspecified; R45.851 Suicidal ideations; Y90.6 Blood alcohol level of 120-199 mg/100 ml
CPT/HCPCS: J1630; J2405; J7030

== ENCOUNTER 2018-07-31 00:24 | Emergency (ER) | payer MEDICAID ==
[~2018-07-31] VITALS: Ht 157.5 cm; Wt 43.2 kg
[~2018-07-31 00:24] MED LIST changes: +XANAX 0.5MG0.5 MG PO
[2018-07-31 00:28] VITALS: TEMP 97.3
[2018-07-31 01:07] LABS: BASO # 0.1 (0.0-0.2); BASO % 0.5 % (0.0-2.0); EOS % 0.2 % (0-4.0); GRAN # 8.1 (1.4-6.5); GRAN % 71.8 % (42.2-75.2); HEMATOCRIT 37.5 % (37.0-47.0); HEMOGLOBIN 12.4 g/dl (12.5-16.0); LYMPH # 2.4 (1.2-3.4); LYMPH % 21.5 % (20.0-51.0); MEAN CELL VOLUME 85 fl (80.0-100.0); MEAN CORPUSCULAR HEMOGLOBIN 28 pg (27.0-31.0); MEAN CORPUSCULAR HGB CONC 33 g/dl (33.0-37.0); MEAN PLATELET VOLUME 8.8 fl (7.4-10.4); MONO # 0.6 (0.1-0.6); MONO % 5.5 % (1.7-9.3); PLATELET COUNT 289 K/mm3 (130-400); RED BLOOD COUNT 4.43 M/mm3 (4.10-5.30); REDCELL DISTRIBUTION WIDTH-CV 15.5 % (11.5-14.5)
[2018-07-31 01:45] LABS: ALBUMIN 3.9 gm/dL (3.5-5.0); BILIRUBIN,TOTAL 0.3 mg/dL (0.0-1.0); CREATININE, serum 0.54 mg/dL (0.52-1.25); MAGNESIUM 1.5 mg/dL (1.6-2.3); POTASSIUM 3.2 mmol/L (3.4-5.0); TOTAL PROTEIN 6.3 gm/dL (6.4-8.2)
[2018-07-31] MEDS ORDERED: MAG-OX 400400 MG/TAB PO (02:33)
[2018-07-31 05:03] VITALS: BP 109/85; PULSE 90
== END 2018-07-31 05:04 | disposition home or self-care (01) ==
LOC: COL.ER 00:24
PROVIDERS: Nurse Practitioner
DX: F10.129 Alcohol abuse with intoxication, unspecified (principal); J45.909 Unspecified asthma, uncomplicated; F32.9 Major depressive disorder, single episode, unspecified; F41.9 Anxiety disorder, unspecified; Y90.6 Blood alcohol level of 120-199 mg/100 ml; F17.210 Nicotine dependence, cigarettes, uncomplicated
CPT/HCPCS: J2405

== ENCOUNTER 2018-08-04 20:32 | Emergency (ER) | payer MEDICAID ==
[~2018-08-04] VITALS: Ht 154.9 cm; Wt 43.2 kg
[2018-08-04 20:38] VITALS: BP 118/74; PULSE 124
== END 2018-08-04 21:25 | disposition left against medical advice (07) ==
LOC: COL.ER 20:32
DX: F10.129 Alcohol abuse with intoxication, unspecified (principal); Z79.899 Other long term (current) drug therapy

== ENCOUNTER 2018-08-05 16:16 | Emergency (ER) | payer MEDICAID ==
[~2018-08-05] VITALS: Ht 154.9 cm; Wt 43.2 kg
[2018-08-05 16:29] VITALS: BP 99/57; PULSE 129; TEMP 98.9
[2018-08-05 17:24] LABS: COLLECTION METHOD CLEAN CATCH
[2018-08-05 17:33] LABS: BASO # 0.1 (0.0-0.2); BASO % 0.5 % (0.0-2.0); EOS # 0.1 (0.0-0.7); EOS % 0.7 % (0-4.0); GRAN # 9.7 (1.4-6.5); GRAN % 65.6 % (42.2-75.2); HEMATOCRIT 42.1 % (37.0-47.0); HEMOGLOBIN 14.1 g/dl (12.5-16.0); LYMPH # 4.1 (1.2-3.4); LYMPH % 28.1 % (20.0-51.0); MEAN CELL VOLUME 83 fl (80.0-100.0); MEAN CORPUSCULAR HEMOGLOBIN 28 pg (27.0-31.0); MEAN CORPUSCULAR HGB CONC 34 g/dl (33.0-37.0); MEAN PLATELET VOLUME 9.8 fl (7.4-10.4); MONO # 0.7 (0.1-0.6); MONO % 4.8 % (1.7-9.3); PLATELET COUNT 253 K/mm3 (130-400); RED BLOOD COUNT 5.05 M/mm3 (4.10-5.30); REDCELL DISTRIBUTION WIDTH-CV 15.5 % (11.5-14.5)
[2018-08-05 17:35] LABS: PH 6 (5-8); URINE APPEARANCE Clear; URINE BACTERIA Rare /hpf; URINE BILIRUBIN Negative (NEGATIVE); URINE BLOOD 3+ (NEGATIVE); URINE COLOR Yellow; URINE GLUCOSE Negative (NEGATIVE); URINE KETONE Negative (NEGATIVE); URINE LEUKOCYTE ESTERASE 2+ (NEGATIVE); URINE NITRATE Negative (NEGATIVE); URINE PROTEIN(semi-quant) Negative (NEGATIVE); URINE RBC 0-2 /hpf; URINE UROBILINOGEN Negative (NEGATIVE)
[2018-08-05 17:39] LABS: TRICYCLIC ANTIDEPRESS URINE NEGATIVE
[2018-08-05 17:45] LABS: ALANINE AMINOTRANSFERASE 16 U/L (9-52); ALBUMIN 4.8 gm/dL (3.5-5.0); ALKALINE PHOSPHATASE 85 U/L (50-136); ANION GAP 14 mmol/L (7-16); AST,SGOT 36 U/L (15-37); BILIRUBIN,TOTAL 0.5 mg/dL (0.0-1.0); BLOOD UREA NITROGEN 15 mg/dL (7-17); CALCIUM 9.4 mg/dL (8.4-10.2); CARBON DIOXIDE 25 mmol/L (22-30); CHLORIDE 108 mmol/L (98-107); GLUCOSE 95 mg/dL (74-106); LIPASE 46 U/L (23-300); MAGNESIUM 1.9 mg/dL (1.6-2.3); PHOSPHOROUS 5.2 mg/dL (2.5-4.5); SODIUM 146 mmol/L (137-145); TOTAL PROTEIN 7.9 gm/dL (6.4-8.2)
[2018-08-05 17:50] LABS: ACETAMINOPHEN < 10 ug/mL (10-30); SALICYLATE < 1.0 mg/dL
[2018-08-05 17:54] LABS: ALCOHOL(ethanol),MEDICAL 344 mg/dL
== END 2018-08-05 18:12 | disposition left against medical advice (07) ==
LOC: COL.ER 16:16
PROVIDERS: Emergency Medicine
DX: F32.9 Major depressive disorder, single episode, unspecified (principal); R45.851 Suicidal ideations; F10.129 Alcohol abuse with intoxication, unspecified; F17.210 Nicotine dependence, cigarettes, uncomplicated; Y90.8 Blood alcohol level of 240 mg/100 ml or more

== ENCOUNTER 2018-08-16 18:27 | Emergency (ER) | payer MEDICAID ==
[~2018-08-16] VITALS: Ht 154.9 cm; Wt 45.5 kg
[2018-08-16 18:46] LABS: BASO # 0.1 (0.0-0.2); BASO % 0.7 % (0.0-2.0); EOS # 0.1 (0.0-0.7); EOS % 0.7 % (0-4.0); GRAN # 2.2 (1.4-6.5); GRAN % 22.2 % (42.2-75.2); HEMATOCRIT 39.1 % (37.0-47.0); LYMPH # 6.7 (1.2-3.4); LYMPH % 68.7 % (20.0-51.0); MEAN CELL VOLUME 83 fl (80.0-100.0); MEAN CORPUSCULAR HEMOGLOBIN 28 pg (27.0-31.0); MEAN CORPUSCULAR HGB CONC 33 g/dl (33.0-37.0); MEAN PLATELET VOLUME 8.9 fl (7.4-10.4); MONO # 0.7 (0.1-0.6); MONO % 7.5 % (1.7-9.3); PLATELET COUNT 425 K/mm3 (130-400); RED BLOOD COUNT 4.72 M/mm3 (4.10-5.30); REDCELL DISTRIBUTION WIDTH-CV 15.6 % (11.5-14.5)
[2018-08-16 18:56] LABS: CALCIUM 8.8 mg/dL (8.4-10.2); CREATININE, serum 0.57 mg/dL (0.52-1.25); POTASSIUM 3.8 mmol/L (3.4-5.0)
[2018-08-16 20:32] VITALS: BP 124/82; PULSE 99
[2018-08-17] MEDS ORDERED: ZOLOFT 50MG50 MG PO (13:03)
[2018-08-17] MEDS ORDERED: ZOLOFT 100MG100 MG PO (13:03)
[2018-08-17] MEDS ORDERED: SEROQUEL50 MG PO (19:36)
== END 2018-08-16 20:32 | disposition home or self-care (01) ==
LOC: COL.ER 18:27
PROVIDERS: Emergency Medicine
DX: F10.129 Alcohol abuse with intoxication, unspecified (principal); Y90.8 Blood alcohol level of 240 mg/100 ml or more
CPT/HCPCS: J7030

== ENCOUNTER 2018-08-17 12:33 | Inpatient (IN) | payer MEDICAID ==
[~2018-08-17] VITALS: Wt 48.3 kg
[2018-08-17] VITALS (373 sets, daily range): BP systolic 103–135; BP diastolic 75–96; PULSE 97–118; TEMP 98–98.6; O2SAT 81–100
[2018-08-17] MEDS ORDERED: ZOLOFT 50MG50 MG PO (13:03)
[2018-08-17] MEDS ORDERED: ZOLOFT 100MG100 MG PO (13:03)
[2018-08-17 13:24] LABS: BASO # 0.1 (0.0-0.2); EOS # 0.1 (0.0-0.7); EOS % 1.3 % (0-4.0); GRAN % 32.5 % (42.2-75.2); HEMATOCRIT 35.7 % (37.0-47.0); HEMOGLOBIN 11.8 g/dl (12.5-16.0); LYMPH # 3.5 (1.2-3.4); LYMPH % 56.3 % (20.0-51.0); MEAN CELL VOLUME 84 fl (80.0-100.0); MEAN CORPUSCULAR HEMOGLOBIN 28 pg (27.0-31.0); MEAN CORPUSCULAR HGB CONC 33 g/dl (33.0-37.0); MEAN PLATELET VOLUME 8.9 fl (7.4-10.4); MONO # 0.5 (0.1-0.6); MONO % 8.7 % (1.7-9.3); PLATELET COUNT 344 K/mm3 (130-400); RED BLOOD COUNT 4.27 M/mm3 (4.10-5.30); REDCELL DISTRIBUTION WIDTH-CV 15.6 % (11.5-14.5)
--- NOTE | 2018-08-17 13:25 | NUR ---
PT ARRIVED ON UNIT VIA STRETCHER, ALERT AND ORIENTED X4, ON ROOM AIR AND DENIES ANY PAIN. PT ORIENTED TO ROOM AND CALL LIGHT WITHIN REACH.
[2018-08-17 13:38] LABS: ACETAMINOPHEN < 10 ug/mL (10-30); ALANINE AMINOTRANSFERASE 16 U/L (9-52); ALBUMIN 4.2 gm/dL (3.5-5.0); ALCOHOL(ethanol),MEDICAL 295 mg/dL; ALKALINE PHOSPHATASE 78 U/L (50-136); ANION GAP 11 mmol/L (7-16); AST,SGOT 56 U/L (15-37); BILIRUBIN,TOTAL 0.7 mg/dL (0.0-1.0); BLOOD UREA NITROGEN 9 mg/dL (7-17); CALCIUM 8.4 mg/dL (8.4-10.2); CARBON DIOXIDE 26 mmol/L (22-30); CHLORIDE 107 mmol/L (98-107); GLUCOSE 93 mg/dL (74-106); POTASSIUM 3.9 mmol/L (3.4-5.0); SALICYLATE < 1.0 mg/dL; SODIUM 144 mmol/L (137-145); TOTAL PROTEIN 7.1 gm/dL (6.4-8.2)
--- NOTE | 2018-08-17 15:03 | NUR ---
RECEIVED REPORT OVER THE PHONE FROM PRISCILLA CRAWFORD.
--- NOTE | 2018-08-17 19:18 | NUR ---
REPORT GIVEN TO PRISCILLA JACKSON. ALL QUESTIONS ANSWERED.
--- NOTE | 2018-08-17 19:25 | NUR ---
Bedside report received from PRISCILLA Perez.
[2018-08-17] MEDS ORDERED: SEROQUEL50 MG PO (19:36)
[2018-08-18] VITALS (171 sets, daily range): BP systolic 95–116; BP diastolic 51–79; PULSE 71–111; TEMP 98.1–99.3; O2SAT 52–100
--- NOTE | 2018-08-18 | NUR ---
Patient sleeping at this time. Arrouses to name being called. No complaints of pain at this time. Only request is to continue sleeping. Patient continues to score on CIWA scale. Ativan to be provided. No further needs at this time. Will continue to monitor. Call light within reach.
[2018-08-18 06:01] LABS: BASO % 0.7 % (0.0-2.0); EOS # 0.1 (0.0-0.7); GRAN # 1.9 (1.4-6.5); GRAN % 40.2 % (42.2-75.2); LYMPH # 2.3 (1.2-3.4); LYMPH % 49.3 % (20.0-51.0); MEAN CELL VOLUME 86 fl (80.0-100.0); MEAN CORPUSCULAR HGB CONC 32 g/dl (33.0-37.0); MEAN PLATELET VOLUME 8.8 fl (7.4-10.4); MONO # 0.4 (0.1-0.6); MONO % 7.6 % (1.7-9.3); RED BLOOD COUNT 3.46 M/mm3 (4.10-5.30); REDCELL DISTRIBUTION WIDTH-CV 15.7 % (11.5-14.5)
[2018-08-18 06:16] LABS: CALCIUM 7.5 mg/dL (8.4-10.2); CREATININE, serum 0.5 mg/dL (0.52-1.25); POTASSIUM 3.6 mmol/L (3.4-5.0)
[2018-08-18 06:37] LABS: HEMATOCRIT 29.9 % (37.0-47.0); HEMOGLOBIN 9.6 g/dl (12.5-16.0); MEAN CORPUSCULAR HEMOGLOBIN 28 pg (27.0-31.0); PLATELET COUNT 237 K/mm3 (130-400)
--- NOTE | 2018-08-18 07:06 | NUR ---
Bedside report given to PRISCILLA Milian. All lines and medications reviewed. Transfer of care at this time.
--- NOTE | 2018-08-18 07:30 | NUR ---
PT HAD CLIMBED OVER SIDE RAIL, URINATED ON THE FLOOR, AND WALKED OVER TO THE TOILET TO FINISH VOIDING. UNABLE TO OBTAIN URINE SAMPLE AT THIS TIME. PT HAD ALSO STARTED HER MENSES. PT'S SHEETS CHANGED AND PT GIVEN PAD FOR MENSES. PT STATES SHE IS FEELING ANXIOUS AT THIS TIME. PT COOPERATIVE AND PLEASANT AT THE PRESENT TIME.
--- NOTE | 2018-08-18 07:46 | NUR ---
Bedside report given to PRISCILLA Kyle
--- NOTE | 2018-08-18 10:03 | NUR ---
REPORT GIVEN TO FREDDY WELLS.
--- NOTE | 2018-08-18 10:19 | NUR ---
PT TRANSFERRED TO MEDICAL ROOM 315 VIA WHEELCHAIR. PT'S BELONGINGS TRANSFERRED WITH PATIENT. CONTACT MADE WITH FREDDY WELLS UPON TRANSFER.
--- NOTE | 2018-08-18 10:23 | NUR ---
NOTIFIED FREDDY WELLS THAT PT WAS STARTED ON PROZAC AND PROTONIX THIS AM AND I WAS UNABLE TO GIVE PT ADDED MEDICATIONS PRIOR TO TRANSFER.
--- NOTE | 2018-08-18 10:30 | NUR ---
Pt arrived to medical from ICU. Drowsy, noted tremor. Sleeping comfortably in bed, but awakens to voice. Denies needs at this time.
--- NOTE | 2018-08-18 17:51 | NUR ---
Pt had uneventful day. Slept all afternoon. Vitals stable. Denies further needs.
--- NOTE | 2018-08-18 19:18 | NUR ---
Report given to PRISCILLA Cooper. Pt sleeping in bed at this time.
--- NOTE | 2018-08-18 20:03 | NUR ---
Pt in bed sleeping, friend in room with Pt, Pt was easily aroused to administer medications and complete shift assessments, left Pt call light in reach, bed in lowest position.
[2018-08-18 20:08] LABS: COLLECTION METHOD CLEAN CATCH
[2018-08-18 20:22] LABS: TRICYCLIC ANTIDEPRESS URINE NEGATIVE
[2018-08-18 20:41] LABS: PH 6 (5-8); SQUAMOUS EPITHELIAL 0-2 /hpf; URINE APPEARANCE Clear; URINE BACTERIA None Seen /hpf; URINE BILIRUBIN Negative (NEGATIVE); URINE BLOOD 3+ (NEGATIVE); URINE COLOR Yellow; URINE GLUCOSE Negative (NEGATIVE); URINE KETONE Trace (NEGATIVE); URINE LEUKOCYTE ESTERASE Negative (NEGATIVE); URINE NITRATE Negative (NEGATIVE); URINE PROTEIN(semi-quant) Negative (NEGATIVE); URINE RBC >50 /hpf; URINE UROBILINOGEN Negative (NEGATIVE)
[2018-08-19] VITALS (12 sets, daily range): BP systolic 89–128; BP diastolic 56–86; PULSE 60–93; TEMP 97.3–98.9
--- NOTE | 2018-08-19 05:35 | NUR ---
Pt slept through the night with no C/O pain, she is currently not showing signs of withdrawl, VS have remained stabl during the shift.
[2018-08-19 07:31] LABS: CALCIUM 8.3 mg/dL (8.4-10.2); CREATININE, serum 0.48 mg/dL (0.52-1.25); POTASSIUM 3.1 mmol/L (3.4-5.0)
--- NOTE | 2018-08-19 09:50 | NUR ---
Pt resting in bed with call light within reach; complained of anxiety and cold sweats this morning, stating, "I'm just trying to go to my happy place." Ativan provided per protocol. Denies further needs at this time; IVF infusing per orders.
--- NOTE | 2018-08-19 16:53 | NUR ---
Plan to DC to inpatient A&D for [facility] or home. Met with patient at her bedside. Patient in room with BF. Patient reports that she wants to be left alone with BF. BF reports that she is scheduled to go to inpatient rehab for substance abuse. Patient reports that she was to detox for three days and then can go to [facility]. Patient reports her pillowcase sewer as Kimberly Steiner, whom the pt was suppossed to call to inform her that she has start detox at the hospital and then she would be issued a bed. BF reports that he would obtain contact information for SW to call to see if bed still avail. Awaiting information and formal assessment.
--- NOTE | 2018-08-19 17:43 | NUR ---
Pt had uneventful day. Did have one episode of anxiety this afternoon, which resolved with ativan per protocol. Denies further needs at this time; will continue to monitor.
--- NOTE | 2018-08-19 18:43 | NUR ---
Pt resting in bed. REport given to PRISCILLA Saleh.
--- NOTE | 2018-08-19 19:54 | NUR ---
PT IN BED, AWAKENS EASILY. PT ANSWERS QUESTIONS APPROPRIATELY, THEN DRIFTS BACK TO SLEEP. DENIES PAIN OR DISCOMFORT AT THIS TIME. NO NEEDS, OFFERED FOOD BUT DECLINED. CALL LIGHT WITHIN REACH AND BED ALARM ON.
--- NOTE | 2018-08-19 23:40 | NUR ---
PT SLEEPING/RESTING IN BED WITH NO S/S OF PAIN OR DISCOMFORT. BOYFRIEND VISITING PT AT THIS TIME. DOES NOT KNOW IF HE WILL STAY ALL NIGHT. NO NEEDS AT THIS TIME, CALL LIGHT WITHIN REACH.
[2018-08-20 04:36] VITALS: BP 90/54; PULSE 65; TEMP 98.1
--- NOTE | 2018-08-20 05:46 | NUR ---
PT'S BOYFRIEND LEFT SOMETIME DURING THE NIGHT. PT LEFT A BABY DOLL IN BED WITH THE PT. PT WAS AWAKEN FOR VS AND PT DOES NOT WANT TO OPEN HER EYES BECAUSE SHE SAYS THAT IT WILL CAUSE HER TO HAVE ANXIETY. PT DOES NOT HAVE ANY ANXIETY AND IS NOT SCORING FOR DETOX. PT DENIES PAIN OR DISCOMFORT AND HAS CALL LIGHT WITHIN REACH.
[2018-08-20 06:14] VITALS: BP 97/58; PULSE 65; TEMP 97.6
[2018-08-20 07:14] LABS: BASO % 0.6 % (0.0-2.0); EOS # 0.1 (0.0-0.7); EOS % 2.2 % (0-4.0); GRAN # 2.3 (1.4-6.5); GRAN % 46.9 % (42.2-75.2); HEMOGLOBIN 11.1 g/dl (12.5-16.0); LYMPH # 2.2 (1.2-3.4); LYMPH % 44.4 % (20.0-51.0); MEAN CELL VOLUME 86 fl (80.0-100.0); MEAN CORPUSCULAR HEMOGLOBIN 28 pg (27.0-31.0); MEAN CORPUSCULAR HGB CONC 33 g/dl (33.0-37.0); MEAN PLATELET VOLUME 9.9 fl (7.4-10.4); MONO # 0.3 (0.1-0.6); MONO % 5.7 % (1.7-9.3); PLATELET COUNT 266 K/mm3 (130-400); RED BLOOD COUNT 3.97 M/mm3 (4.10-5.30); REDCELL DISTRIBUTION WIDTH-CV 15.7 % (11.5-14.5)
[2018-08-20 07:17] LABS: HEMATOCRIT 34.2 % (37.0-47.0)
[2018-08-20 07:21] LABS: CALCIUM 9.3 mg/dL (8.4-10.2); CREATININE, serum 0.56 mg/dL (0.52-1.25); MAGNESIUM 1.6 mg/dL (1.6-2.3); POTASSIUM 4.1 mmol/L (3.4-5.0)
--- NOTE | 2018-08-20 07:56 | NUR ---
Assessment complete. Pt very drowsy, awakens briefly and verifies name & date of then back to sleep. Physical assessment unremarkable. No facial grimace, muscles relaxed, resp even and unlabored. Saline lock IV to right AC without s/s of complications. Call light in reach. Bed alarm on.
[2018-08-20 07:59] VITALS: BP 93/56; PULSE 70; TEMP 98.1
--- NOTE | 2018-08-20 08:34 | NUR ---
Update to [place] plan: [facility] spoke with [facility] and did not have record for PT to enter bed. [facility] has a bed today and are able to take PT for inpatient [facility] rehab if PT is wanting to go. FAXED intake to
[2018-08-20 10:00] VITALS: BP 110/75; PULSE 97; TEMP 98.7
[2018-08-20] MEDS ORDERED: THIAMINE 1100 MG/TAB PO (10:36)
[2018-08-20] MEDS ORDERED: MULTIPLE VITAMI1 TA5 PO (10:36)
--- NOTE | 2018-08-20 12:05 | NUR ---
Discharge instructions reviewed with pt regarding plans to go to [facility] for alcohol rehab and follow-up with PCP after discharge from there. Pt verbalizes understanding. Pt getting dressed and ready for discharge, awaiting ride.
--- NOTE | 2018-08-20 12:28 | NUR ---
Pt discharged home, ambulates out of facility accompanied by [employer] SAL[employer] ACCOUNT EXECUTIVE, pt's boyfriend providing ride.
== END 2018-08-20 12:29 | disposition home or self-care (01) | DRG 897 ==
LOC: COL.ER 12:33 → ICU 14:58 → MEDICAL 14:58
PROVIDERS: Physician Assistant; ADMIT Family Medicine
DX: F10.239 Alcohol dependence with withdrawal, unspecified (principal); K86.0 Alcohol-induced chronic pancreatitis; F10.229 Alcohol dependence with intoxication, unspecified; Y90.8 Blood alcohol level of 240 mg/100 ml or more; E87.6 Hypokalemia; F41.8 Other specified anxiety disorders; E16.2 Hypoglycemia, unspecified
CPT/HCPCS: 99223-AI; 99231-AI; 99233-AI; 99239; J1650; J2060; J3411; J7030

== ENCOUNTER 2018-12-09 19:00 | Emergency (ER) | payer MEDICAID ==
[~2018-12-09] VITALS: Ht 157.5 cm; Wt 52.3 kg
[~2018-12-09 19:00] MED LIST changes: +MULTIPLE VITAMI1 TA5 PO
[2018-12-09 19:04] VITALS: TEMP 97.8
[2018-12-09 19:25] LABS: BASO # 0.1 (0.0-0.2); BASO % 0.7 % (0.0-2.0); EOS # 0.1 (0.0-0.7); EOS % 1.1 % (0-4.0); GRAN # 3.8 (1.4-6.5); HEMATOCRIT 43.8 % (37.0-47.0); HEMOGLOBIN 14.3 g/dl (12.5-16.0); LYMPH # 4.4 (1.2-3.4); LYMPH % 50.1 % (20.0-51.0); MEAN CELL VOLUME 80 fl (80.0-100.0); MEAN CORPUSCULAR HEMOGLOBIN 26 pg (27.0-31.0); MEAN CORPUSCULAR HGB CONC 33 g/dl (33.0-37.0); MEAN PLATELET VOLUME 9.8 fl (7.4-10.4); MONO # 0.4 (0.1-0.6); MONO % 4.9 % (1.7-9.3); PLATELET COUNT 250 K/mm3 (130-400); RED BLOOD COUNT 5.49 M/mm3 (4.10-5.30)
[2018-12-09 19:38] LABS: ALANINE AMINOTRANSFERASE 17 U/L (9-52); ALBUMIN 4.4 gm/dL (3.5-5.0); ALCOHOL(ethanol),MEDICAL 249 mg/dL; ALKALINE PHOSPHATASE 60 U/L (50-136); ANION GAP 14 mmol/L (7-16); AST,SGOT 79 U/L (15-37); BILIRUBIN,TOTAL 0.4 mg/dL (0.0-1.0); BLOOD UREA NITROGEN 14 mg/dL (7-17); C-REACTIVE PROTEIN < 0.5 mg/dL (0.0-0.9); CALCIUM 8.8 mg/dL (8.4-10.2); CARBON DIOXIDE 26 mmol/L (22-30); CHLORIDE 109 mmol/L (98-107); CREATININE, serum 0.58 (0.52-1.25); GLUCOSE 95 mg/dL (74-106); LIPASE 310 U/L (23-300); MAGNESIUM 1.7 mg/dL (1.6-2.3); PHOSPHOROUS 4.6 mg/dL (2.5-4.5); POTASSIUM 3.9 mmol/L (3.4-5.0); SODIUM 148 mmol/L (137-145); TOTAL PROTEIN 7.3 gm/dL (6.4-8.2)
[2018-12-09 20:49] LABS: COLLECTION METHOD CLEAN CATCH
[2018-12-09 20:55] LABS: MUCOUS Present /lpf; PH 5 (5-8); URINE APPEARANCE Hazy; URINE BACTERIA None Seen /hpf; URINE BILIRUBIN Negative (NEGATIVE); URINE BLOOD Negative (NEGATIVE); URINE COLOR Yellow; URINE GLUCOSE Negative (NEGATIVE); URINE KETONE Negative (NEGATIVE); URINE LEUKOCYTE ESTERASE 2+ (NEGATIVE); URINE NITRATE Negative (NEGATIVE); URINE PROTEIN(semi-quant) Negative (NEGATIVE); URINE UROBILINOGEN Negative (NEGATIVE)
[2018-12-09] MEDS ORDERED: CEPHALEXIN500 M1 PO (21:56)
[2018-12-09] MEDS ORDERED: PEPCID40 MG PO (21:56)
[2018-12-09 23:34] VITALS: BP 101/59; PULSE 100
== END 2018-12-09 23:34 | disposition home or self-care (01) ==
LOC: COL.ER 19:00
PROVIDERS: Emergency Medicine
DX: N39.0 Urinary tract infection, site not specified (principal); F10.129 Alcohol abuse with intoxication, unspecified; F17.210 Nicotine dependence, cigarettes, uncomplicated; Y90.8 Blood alcohol level of 240 mg/100 ml or more
CPT/HCPCS: J7030

== ENCOUNTER 2018-12-15 16:29 | Inpatient (IN) | payer MEDICAID ==
[~2018-12-15] VITALS: Ht 157.5 cm; Wt 48.1 kg
[~2018-12-15 16:29] MED LIST changes: +CEPHALEXIN500 M1 PO; +PEPCID40 MG PO
[2018-12-15 17:15] LABS: BASO % 0.3 % (0.0-2.0); GRAN # 7.2 (1.4-6.5); GRAN % 82.2 % (42.2-75.2); HEMATOCRIT 38.9 % (37.0-47.0); HEMOGLOBIN 12.6 g/dl (12.5-16.0); LYMPH % 11.4 % (20.0-51.0); MEAN CELL VOLUME 82 fl (80.0-100.0); MEAN CORPUSCULAR HEMOGLOBIN 27 pg (27.0-31.0); MEAN CORPUSCULAR HGB CONC 32 g/dl (33.0-37.0); MEAN PLATELET VOLUME 10.2 fl (7.4-10.4); MONO # 0.5 (0.1-0.6); MONO % 5.9 % (1.7-9.3); PLATELET COUNT 167 K/mm3 (130-400); RED BLOOD COUNT 4.74 M/mm3 (4.10-5.30)
[2018-12-15 17:24] LABS: ALANINE AMINOTRANSFERASE 15 U/L (9-52); ALBUMIN 4.4 gm/dL (3.5-5.0); ALCOHOL(ethanol),MEDICAL 21 mg/dL; ALKALINE PHOSPHATASE 78 U/L (50-136); ANION GAP 19 mmol/L (7-16); AST,SGOT 40 U/L (15-37); BILIRUBIN,TOTAL 0.5 mg/dL (0.0-1.0); BLOOD UREA NITROGEN 8 mg/dL (7-17); CALCIUM 9.4 mg/dL (8.4-10.2); CHLORIDE 108 mmol/L (98-107); GLUCOSE 84 mg/dL (74-106); POTASSIUM 4.2 mmol/L (3.4-5.0); SODIUM 140 mmol/L (137-145); TOTAL PROTEIN 7.3 gm/dL (6.4-8.2)
[2018-12-15 17:31] LABS: ACETONE,SERUM NEGATIVE
[2018-12-15 17:33] LABS: C-REACTIVE PROTEIN 3.3 mg/dL (0.0-0.9); CARBON DIOXIDE 13 mmol/L (22-30)
[2018-12-15 18:12] LABS: LIPASE 6254 U/L (23-300)
[2018-12-15] MEDS ORDERED: PROZAC40 MG PO (18:26)
[2018-12-15] MEDS ORDERED: DESYREL 100MG100 MG PO (18:28)
[2018-12-15] MEDS ORDERED: REVIA 50MG TABL50 MG PO (18:29)
[2018-12-15] MEDS ORDERED: BUSPAR5 MG PO (18:29)
[2018-12-15] MEDS ORDERED: ATARAX50 MG PO (18:30)
[2018-12-15 19:28] LABS: COLLECTION METHOD CLEAN CATCH
[2018-12-15 19:55] LABS: MUCOUS Present /lpf; PH 5 (5-8); SQUAMOUS EPITHELIAL 0-2 /hpf; URINE APPEARANCE Clear; URINE BACTERIA None Seen /hpf; URINE BILIRUBIN Negative (NEGATIVE); URINE BLOOD 2+ (NEGATIVE); URINE COLOR Yellow; URINE GLUCOSE Negative (NEGATIVE); URINE KETONE 2+ (NEGATIVE); URINE LEUKOCYTE ESTERASE Negative (NEGATIVE); URINE NITRATE Negative (NEGATIVE); URINE PROTEIN(semi-quant) 2+ (NEGATIVE); URINE UROBILINOGEN Negative (NEGATIVE)
[2018-12-15 20:24] VITALS: BP 124/101; PULSE 98; TEMP 98.4
[2018-12-15] MEDS ORDERED: BUSPAR10 MG (20:29)
[2018-12-15 21:38] LABS: INR 0.9 (0.8-3.0); PROTHROMBIN TIME 10.6 SECONDS (9.7-12.8)
[2018-12-15 21:41] LABS: PARTIAL THROMBOPLASTIN TIME 28.8 SECONDS (26.0-37.0)
[2018-12-15 22:00] VITALS: PULSE 88
[2018-12-15 22:06] VITALS: BP 141/93; PULSE 88; TEMP 98.7
[2018-12-16] VITALS (17 sets, daily range): BP systolic 105–126; BP diastolic 53–89; PULSE 83–98; TEMP 97.5–98.6
[2018-12-16 04:05] LABS: TRICYCLIC ANTIDEPRESS URINE POSITIVE
[2018-12-16 06:27] LABS: BASO % 0.3 % (0.0-2.0); EOS # 0.1 (0.0-0.7); EOS % 1.9 % (0-4.0); GRAN # 4.5 (1.4-6.5); GRAN % 62.7 % (42.2-75.2); HEMATOCRIT 33.9 % (37.0-47.0); LYMPH % 27.1 % (20.0-51.0); MEAN CELL VOLUME 80 fl (80.0-100.0); MEAN CORPUSCULAR HEMOGLOBIN 26 pg (27.0-31.0); MEAN CORPUSCULAR HGB CONC 32 g/dl (33.0-37.0); MEAN PLATELET VOLUME 9.7 fl (7.4-10.4); MONO # 0.6 (0.1-0.6); MONO % 7.6 % (1.7-9.3); PLATELET COUNT 141 K/mm3 (130-400); RED BLOOD COUNT 4.22 M/mm3 (4.10-5.30); REDCELL DISTRIBUTION WIDTH-CV 17.9 % (11.5-14.5)
[2018-12-16 06:35] LABS: ALBUMIN 3.5 gm/dL (3.5-5.0); BILIRUBIN,TOTAL 0.7 mg/dL (0.0-1.0); CALCIUM 8.5 mg/dL (8.4-10.2); CREATININE, serum 0.46 (0.52-1.25); POTASSIUM 3.8 mmol/L (3.4-5.0)
[2018-12-17] VITALS (11 sets, daily range): BP systolic 99–129; BP diastolic 57–75; PULSE 46–115; TEMP 97.4–98.8
[2018-12-17 06:29] LABS: BASO % 0.4 % (0.0-2.0); EOS # 0.2 (0.0-0.7); EOS % 4.6 % (0-4.0); GRAN # 2.1 (1.4-6.5); GRAN % 46.4 % (42.2-75.2); HEMOGLOBIN 10.7 g/dl (12.5-16.0); LYMPH # 1.9 (1.2-3.4); LYMPH % 40.7 % (20.0-51.0); MEAN CELL VOLUME 82 fl (80.0-100.0); MEAN CORPUSCULAR HEMOGLOBIN 27 pg (27.0-31.0); MEAN CORPUSCULAR HGB CONC 33 g/dl (33.0-37.0); MEAN PLATELET VOLUME 9.9 fl (7.4-10.4); MONO # 0.4 (0.1-0.6); MONO % 7.7 % (1.7-9.3); PLATELET COUNT 133 K/mm3 (130-400); REDCELL DISTRIBUTION WIDTH-CV 17.7 % (11.5-14.5)
[2018-12-17 06:34] LABS: HEMATOCRIT 32.8 % (37.0-47.0)
[2018-12-17 06:43] LABS: ALBUMIN 3.3 gm/dL (3.5-5.0); BILIRUBIN,TOTAL 0.5 mg/dL (0.0-1.0); CALCIUM 8.4 mg/dL (8.4-10.2); CREATININE, serum 0.51 (0.52-1.25); MAGNESIUM 1.4 mg/dL (1.6-2.3); POTASSIUM 3.1 mmol/L (3.4-5.0); TOTAL PROTEIN 5.7 gm/dL (6.4-8.2)
[2018-12-18 03:53] VITALS: BP 98/62; PULSE 73; TEMP 98.1
[2018-12-18 07:49] LABS: HEMOGLOBIN 10.5 g/dl (12.5-16.0); MEAN CELL VOLUME 81 fl (80.0-100.0); MEAN CORPUSCULAR HEMOGLOBIN 27 pg (27.0-31.0); MEAN CORPUSCULAR HGB CONC 33 g/dl (33.0-37.0); MEAN PLATELET VOLUME 10.1 fl (7.4-10.4); PLATELET COUNT 145 K/mm3 (130-400); RED BLOOD COUNT 3.93 M/mm3 (4.10-5.30); REDCELL DISTRIBUTION WIDTH-CV 17.8 % (11.5-14.5)
[2018-12-18 07:55] LABS: HEMATOCRIT 31.7 % (37.0-47.0)
[2018-12-18 08:12] LABS: CALCIUM 8.6 mg/dL (8.4-10.2); CREATININE, serum 0.54 (0.52-1.25); MAGNESIUM 1.5 mg/dL (1.6-2.3); POTASSIUM 3.2 mmol/L (3.4-5.0)
[2018-12-18 08:52] LABS: EOSINOPHIL 2 % (0-4); LYMPHOCYTE 62 % (20.0-51.0); MYELOCYTE 1 % (0-0); NEUTROPHILS 31 % (42.0-75.2); PLATELET ESTIMATE NORMAL (NORMAL)
[2018-12-18 08:53] LABS: TARGET CELLS 1+
[2018-12-18 08:54] LABS: ANISOCYTOSIS 1+
[2018-12-18 09:06] VITALS: BP 104/64; PULSE 74; TEMP 98.7
[2018-12-18 11:55] VITALS: BP 120/69; PULSE 103; TEMP 98.1
[2018-12-18 12:28] VITALS: PULSE 91
[2018-12-18] MEDS ORDERED: NATURE'S BLEND100 M2 PO (14:44)
[2018-12-18] MEDS ORDERED: ZOFRAN 4MG T4 MG/TAB PO (14:45)
[2018-12-18] MEDS ORDERED: NORCO 325 MG-51 TAB PO (14:46)
[2018-12-18] MEDS ORDERED: PROTONIX 40MG T40 MG PO (14:47)
[2018-12-18 15:30] VITALS: BP 116/79; PULSE 76; TEMP 98.4
[2018-12-18] MEDS ORDERED: MAG-OX 400400 MG/TAB PO (16:35)
== END 2018-12-18 16:10 | disposition home or self-care (01) | DRG 439 ==
LOC: COL.ER 16:29 → MEDICAL 18:21
PROVIDERS: Family Medicine; Internal Medicine; Nurse Practitioner; Physician Assistant; ADMIT Hospitalist
DX: K86.0 Alcohol-induced chronic pancreatitis (principal); Z68.1 Body mass index [BMI] 19.9 or less, adult; E87.6 Hypokalemia; E83.42 Hypomagnesemia; F10.129 Alcohol abuse with intoxication, unspecified; Y90.1 Blood alcohol level of 20-39 mg/100 ml; F41.9 Anxiety disorder, unspecified; F32.9 Major depressive disorder, single episode, unspecified; R00.0 Tachycardia, unspecified; K21.9 Gastro-esophageal reflux disease without esophagitis; K29.20 Alcoholic gastritis without bleeding; R63.6 Underweight
CPT/HCPCS: 99222-AI; 99232-AI; 99239; C9113; J1170; J1650; J2405; J2550; J3475; J3480; J7030; J7120

== ENCOUNTER 2018-12-19 00:05 | Emergency (ER) | payer MEDICAID ==
[~2018-12-19] VITALS: Ht 154.9 cm; Wt 47.3 kg
[~2018-12-19 00:05] MED LIST changes: +BUSPAR10 MG; +BUSPAR5 MG PO; +DESYREL 100MG100 MG PO; +NATURE'S BLEND100 M2 PO; +REVIA 50MG TABL50 MG PO; +ZOFRAN 4MG T4 MG/TAB PO
[2018-12-19 00:17] VITALS: TEMP 98.8
[2018-12-19 01:55] LABS: BASO % 0.3 % (0.0-2.0); EOS # 0.1 (0.0-0.7); EOS % 1.5 % (0-4.0); GRAN # 4.7 (1.4-6.5); GRAN % 62.7 % (42.2-75.2); LYMPH # 2.2 (1.2-3.4); LYMPH % 28.8 % (20.0-51.0); MEAN CELL VOLUME 79 fl (80.0-100.0); MEAN CORPUSCULAR HEMOGLOBIN 27 pg (27.0-31.0); MEAN CORPUSCULAR HGB CONC 34 g/dl (33.0-37.0); MEAN PLATELET VOLUME 9.9 fl (7.4-10.4); MONO # 0.5 (0.1-0.6); MONO % 6.4 % (1.7-9.3); PLATELET COUNT 160 K/mm3 (130-400); RED BLOOD COUNT 4.06 M/mm3 (4.10-5.30); REDCELL DISTRIBUTION WIDTH-CV 17.5 % (11.5-14.5)
[2018-12-19 01:56] LABS: HEMATOCRIT 32.2 % (37.0-47.0)
[2018-12-19 02:05] LABS: ALANINE AMINOTRANSFERASE 17 U/L (9-52); ALBUMIN 3.9 gm/dL (3.5-5.0); ALKALINE PHOSPHATASE 67 U/L (50-136); ANION GAP 10 mmol/L (7-16); AST,SGOT 21 U/L (15-37); BILIRUBIN,TOTAL 0.1 mg/dL (0.0-1.0); BLOOD UREA NITROGEN 6 mg/dL (7-17); CALCIUM 9.3 mg/dL (8.4-10.2); CARBON DIOXIDE 29 mmol/L (22-30); CHLORIDE 101 mmol/L (98-107); CREATININE, serum 0.51 (0.52-1.25); GLUCOSE 123 mg/dL (74-106); POTASSIUM 3.5 mmol/L (3.4-5.0); SODIUM 141 mmol/L (137-145); TOTAL PROTEIN 6.6 gm/dL (6.4-8.2)
[2018-12-19 02:38] LABS: ALCOHOL(ethanol),MEDICAL < 10 mg/dL; C-REACTIVE PROTEIN 1.7 mg/dL (0.0-0.9); LIPASE 347 U/L (23-300); MAGNESIUM 1.6 mg/dL (1.6-2.3)
[2018-12-19 03:42] VITALS: BP 108/68; PULSE 97
== END 2018-12-19 03:42 | disposition home or self-care (01) ==
LOC: COL.ER 00:05
PROVIDERS: Emergency Medicine
DX: K85.20 Alcohol induced acute pancreatitis without necrosis or infection (principal); F43.10 Post-traumatic stress disorder, unspecified; F17.210 Nicotine dependence, cigarettes, uncomplicated; F10.229 Alcohol dependence with intoxication, unspecified
CPT/HCPCS: J1170; J2550; J7030

== ENCOUNTER 2019-01-24 09:32 | Emergency (ER) | payer MEDICAID ==
[~2019-01-24] VITALS: Ht 157.5 cm; Wt 45.5 kg
[2019-01-24 09:41] VITALS: TEMP 98.1
[2019-01-24] MEDS ORDERED: NEURONTIN300 MG/CAP PO (10:23)
[2019-01-24 10:34] LABS: BASO # 0.1 (0.0-0.2); BASO % 0.9 % (0.0-2.0); EOS # 0.2 (0.0-0.7); EOS % 3.1 % (0-4.0); GRAN # 3.4 (1.4-6.5); GRAN % 52.9 % (42.2-75.2); HEMATOCRIT 38.3 % (37.0-47.0); HEMOGLOBIN 12.9 g/dl (12.5-16.0); LYMPH # 2.4 (1.2-3.4); LYMPH % 37.2 % (20.0-51.0); MEAN CELL VOLUME 84 fl (80.0-100.0); MEAN CORPUSCULAR HEMOGLOBIN 28 pg (27.0-31.0); MEAN CORPUSCULAR HGB CONC 34 g/dl (33.0-37.0); MEAN PLATELET VOLUME 9.5 fl (7.4-10.4); MONO # 0.4 (0.1-0.6); MONO % 5.7 % (1.7-9.3); PLATELET COUNT 268 K/mm3 (130-400); RED BLOOD COUNT 4.57 M/mm3 (4.10-5.30); REDCELL DISTRIBUTION WIDTH-CV 17.2 % (11.5-14.5)
[2019-01-24 10:53] LABS: ALANINE AMINOTRANSFERASE 23 U/L (9-52); ALBUMIN 4.3 gm/dL (3.5-5.0); ALCOHOL(ethanol),MEDICAL 289 mg/dL; ALKALINE PHOSPHATASE 76 U/L (50-136); ANION GAP 14 mmol/L (7-16); AST,SGOT 36 U/L (15-37); BILIRUBIN,TOTAL 0.4 mg/dL (0.0-1.0); BLOOD UREA NITROGEN 11 mg/dL (7-17); CALCIUM 8.5 mg/dL (8.4-10.2); CARBON DIOXIDE 23 mmol/L (22-30); CHLORIDE 109 mmol/L (98-107); CREATININE, serum 0.54 (0.52-1.25); GLUCOSE 92 mg/dL (74-106); LIPASE 21 U/L (23-300); POTASSIUM 3.7 mmol/L (3.4-5.0); SODIUM 146 mmol/L (137-145); TOTAL PROTEIN 7.1 gm/dL (6.4-8.2)
[2019-01-24 10:57] LABS: ACETONE,SERUM NEGATIVE
[2019-01-24 11:14] LABS: COLLECTION METHOD CLEAN CATCH
[2019-01-24 11:16] LABS: PH 6 (5-8); SQUAMOUS EPITHELIAL 0-2 /hpf; URINE APPEARANCE Clear; URINE BACTERIA None Seen /hpf; URINE BILIRUBIN Negative (NEGATIVE); URINE BLOOD Negative (NEGATIVE); URINE COLOR Yellow; URINE GLUCOSE Negative (NEGATIVE); URINE KETONE Negative (NEGATIVE); URINE LEUKOCYTE ESTERASE Negative (NEGATIVE); URINE NITRATE Negative (NEGATIVE); URINE PROTEIN(semi-quant) Negative (NEGATIVE); URINE RBC 0-2 /hpf; URINE UROBILINOGEN Negative (NEGATIVE)
[2019-01-24 11:18] LABS: HIV 1/2 Antibodies Non-Reactive; HIV-1p24 Antigen Non-Reactive
[2019-01-24 11:30] LABS: TRICYCLIC ANTIDEPRESS URINE NEGATIVE
[2019-01-24] MEDS ORDERED: NEXPLANON68 MG ID (11:34)
[2019-01-24 14:05] VITALS: BP 116/75; PULSE 105
== END 2019-01-24 14:09 | disposition left against medical advice (07) ==
LOC: COL.ER 09:32
PROVIDERS: Emergency Medicine
DX: F10.129 Alcohol abuse with intoxication, unspecified (principal); R07.81 Pleurodynia; T74.21XA Adult sexual abuse, confirmed, initial encounter; F43.10 Post-traumatic stress disorder, unspecified; Y90.8 Blood alcohol level of 240 mg/100 ml or more